=== PATIENT | female | born 1940 | race Caucasian/White ===

== ENCOUNTER 2022-10-31 23:39 | Emergency (ER) | payer MEDICARE, OTHER ==
[~2022-10-31] VITALS: Ht 167.6 cm; Wt 62.5 kg
[2022-11-01] MEDS ORDERED: PIPERACILLIN-TAZOB 3.375GM 100 ML IV ONE
[2022-11-01] MEDS ORDERED: cefTRIAXone 1GM/50ML D5W 50 ML IV ONE (00:15)
[2022-11-01 00:24] LABS: Hematocrit 47.1 % (36.0-46.0); Hemoglobin 15.3 g/dL (12.2-16.2); Mean Corpuscular Hemoglobin 28.8 pg (28.0-32.0); Mean Corpuscular Hgb Conc. 32.5 g/dL (32.0-36.0); Mean Corpuscular Volume 88.4 fL (80.0-100.0); Red Blood Cells 5.32 10^6/uL (4.0-5.20); Red Cell Distribution Width 15.1 % (11.8-14.3); White Blood Cell 26.4 10^3/uL (4.4-10.8)
[2022-11-01 00:28] LABS: Band Neutrophils % (manual) 0; Basophils % (manual) 0 (0.0-2.0); Eosinophils % (manual) 0 (0-7)
[2022-11-01 00:29] LABS: Blast Cells 0; Metamyelocytes % 0; Myelocytes % 0; Promyelocytes % 0; Reactive Lymphocytes 0
[2022-11-01 00:45] LABS: Albumin 3.5 g/dL (3.4-5.0); BUN/Creatinine Ratio 24.4; Magnesium 2.1 mg/dL (1.6-2.6)
[2022-11-01 00:47] LABS: Lymphocytes % (manual) 2 (10.0-50.0); Monocytes % (manual) 3 (0-12)
[2022-11-01 00:53] LABS: CRP High Sensitivity 2.75 mg/dL (< 0.3); Total Protein 7.5 g/dL (6.4-8.2)
[2022-11-01] MEDS ORDERED: VANCOMYCIN PER PHARMACY 0 MG IV SCH ×2 (01:00)
[2022-11-01] MEDS ORDERED: VANCOMYCIN 1GM/250ML 250 ML IV ONE ×2 (01:15→10:45)
[2022-11-01] MEDS ORDERED: IOHEXOL 350 MG/ML 100ML IJ ONE (01:42)
[2022-11-01] MEDS ORDERED: HYDROcodone-ACET 5/325MG TAB PO ONE (09:00)
[2022-11-01] MEDS ORDERED: CLINDAMYCIN 600MG IV 50 ML IV ONE (10:45)
[2022-11-01 17:00] VITALS: BP 149/75
[2022-11-01] MEDS ORDERED: VANCOMYCIN 1GM/250ML 250 ML IV SCH (20:00)
== END 2022-11-01 17:36 | disposition short-term general hospital (02) ==
LOC: ER 23:39
DX: L03.211 Cellulitis of face (principal); Z88.1 Allergy status to other antibiotic agents; Z88.2 Allergy status to sulfonamides; Z90.710 Acquired absence of both cervix and uterus; Z20.822 Contact with and (suspected) exposure to COVID-19; Z79.899 Other long term (current) drug therapy
CPT/HCPCS: 36415; 70488; 80053; 82962; 83605; 83735; 85007; 85027; 86141; 87040; 87426; 96365; 96366; 96367; 99285; J0696; J3370; J3490; Q9967

== ENCOUNTER 2023-08-19 06:01 | Emergency (ER) | payer OTHER ==
[~2023-08-19] VITALS: Ht 167.6 cm; Wt 62.1 kg
[2023-08-19] MEDS ORDERED: KETOROLAC TROMETH 30 MG/ML 1ML VIAL IV ONE (06:45)
[2023-08-19] MEDS ORDERED: ONDANSETRON HCL 4 MG/2 ML VIAL IV ONE (06:45)
[2023-08-19 07:14] LABS: Basophils # (auto) 0 10 ^3/uL (0-0.2); Basophils % (auto) 0.4 % (0.0-2.0); Eosinophils # (auto) 0 10 ^3/uL (0-0.8); Eosinophils % (auto) 0.1 % (0.0-7.0); Hematocrit 42.5 % (36.0-46.0); Hemoglobin 14.1 g/dL (12.2-16.2); Lymphocytes # (auto) 1.3 10 ^3/uL (0.4-5.4); Lymphocytes % (auto) 10.4 % (10.0-50.0); Mean Corpuscular Hgb Conc. 33.1 g/dL (32.0-36.0); Mean Corpuscular Volume 90.5 fL (80.0-100.0); Monocytes # (auto) 0.8 10 ^3/uL (0-1.3); Monocytes % (auto) 6.2 % (0.0-12.0); Neutrophils # (auto) 10.1 10 ^3/uL (1.6-8.6); Neutrophils % (auto) 82.9 % (37.0-80.0); Nucleated Red Blood Cells % 0.1 %; Red Cell Distribution Width 15.1 % (11.8-14.3); White Blood Cell 12.2 10^3/uL (4.4-10.8)
[2023-08-19 08:00] LABS: Alanine Aminotransferase < 9 U/L (7-40); Albumin 3.7 g/dL (3.2-4.8); Alkaline Phosphatase 66 U/L (46-116); Anion Gap 5 (5-15); Aspartate Aminotransferase 11 U/L (13-40); BUN/Creatinine Ratio 22.5 (10.0-20.0); Bilirubin, Total 0.6 mg/dL (0.2-1.0); Blood Urea Nitrogen 20 mg/dL (9-23); Calcium 8.5 mg/dL (8.7-10.4); Carbon Dioxide 25 mmol/L (20-30); Chloride 109 mmol/L (98-107); Glucose 181 mg/dL (74-106); Lipase 49 U/L (12-53); Magnesium 1.9 mg/dL (1.6-2.6); Sodium 139 mmol/L (136-145)
[2023-08-19] MEDS ORDERED: cefTRIAXone 1GM/50ML D5W 50 ML IV ONE (10:15)
[2023-08-19 10:46] LABS: Urine Bacteria FEW /hpf (None Seen); Urine Blood 3+ /uL (Negative); Urine Budding Yeast FEW /hpf (None Seen); Urine Clarity HAZY (Clear); Urine Color PINK (Yellow); Urine Mucus FEW (None Seen); Urine Protein, UAD 1+ (Negative); Urine Specific Gravity 1.026 (1.001-1.035); Urine Urobilinogen Normal (Negative); Urine WBC 19 /hpf (0 - 5); Urine pH 5.5 (5.0-8.0)
[2023-08-19] MEDS ORDERED: CEPH250C PO ×3 (11:08→15:15)
[2023-08-19] MEDS ORDERED: SODIUM CHLORIDE 0.9% 1,000 ML IV ONE ×2 (11:15)
[2023-08-19 12:54] VITALS: BP 127/34; PULSE 80; RESP 14; O2SAT 97
[2023-08-19] MEDS ORDERED: IBUPROFEN 600 MG TAB PO ONE (14:45)
== END 2023-08-19 15:54 | disposition home or self-care (01) ==
LOC: ER 06:01
DX: N20.0 Calculus of kidney (principal); N13.30 Unspecified hydronephrosis; N39.0 Urinary tract infection, site not specified; Z90.49 Acquired absence of other specified parts of digestive tract; Z90.710 Acquired absence of both cervix and uterus; Z79.899 Other long term (current) drug therapy; Z88.1 Allergy status to other antibiotic agents; Z88.2 Allergy status to sulfonamides
CPT/HCPCS: 36415; 74176; 80053; 81001; 83690; 83735; 85025; 87086; 96361; 96365; 96375; 99285; J0696; J1885; J2405

== ENCOUNTER 2024-09-06 09:37 | Emergency (ER) | payer OTHER ==
[~2024-09-06] VITALS: Ht 167.6 cm; Wt 60.5 kg
[~2024-09-06 09:37] MED LIST: CEPH250C PO
--- NOTE | 2024-09-06 10:50 | ED.PDOC ---
Joseline. trauma (HPI) HPI Comments A 84 YEAR OLD FEMALE PRESENTS TO THE ED WITH COMPLAINT OF LEFT FOREARM PAIN AND SKIN TEAR S/P FALL. PATIENT STATES SHE ACCIDENTALLY SLIPPED AND FELL IN THE KITCHEN EARLIER TODAY AND HIT HER LEFT FOREARM ON A CABINET DOOR. PATIENT REPORTS SHE SUSTAINED A SKIN TEAR ON HER LEFT FOREARM AND NOTES SHE HAS LEFT FOREARM PAIN. BLEEDING IS CONTROLLED AT THIS TIME. PATIENT DENIES FEVER, CHILLS, SHORTNESS OF BREATH, CHEST PAIN, ABDOMINAL PAIN, NAUSEA, VOMITING, HEADACHE, OR OTHER COMPLAINTS. NO OTHER SYMPTOMS OR MODIFYING FACTORS AT THIS TIME. PATIENT IS ALERT, ORIENTED X 4, AND HAS STEADY GAIT. Chief Complaint: Laceration Time Seen by MD: 09:57 Primary Care Provider: DR BENTLEY Reviewed notes: Nurses Notes, Medications, Allergies Allergies: Coded Allergies: Amoxicillin (Verified Allergy, Unknown, 11/01/22) Sulfamethoxazole w/Trimethoprim (Verified Allergy, Unknown, 11/01/22) Home Meds Active Scripts Cephalexin (KEFLEX CAPSULE) 250 Mg Cp, 250 MG PO TID for 7 Days, #21 BOTTLE Prov:ISAIAH SANCHEZ MD 08/19/23 Information Source: Patient Mode of Arrival: Ambulatory Severity: Moderate Timing: Hours Duration: Since onset, Hours Prehospital treatment: None Location: (L) Forearm Location of laceration: None Mechanism: Fall Associated signs and symtoms: None Past Medical History PAST MEDICAL HISTORY: Arthritis Surgical History: Appendectomy, Hysterectomy TREE KILLER History: No Pertinent TREE KILLER History Family History Family History: Reviewed,noncontributory to illness Social History Smoker: Non-Smoker Alcohol: Denies ETOH Use Drugs: Denies Drug Use Lives In: Home Constitutional: denies: chills, diaphoresis, fatigue, fever, malaise, sweats, weakness, others EENTM: denies: blurred vision, double vision, ear bleeding, ear discharge, ear drainage, ear pain, ear ringing, eye pain, eye redness, hearing loss, mouth pain, mouth swelling, nasal discharge, nose bleeding, nose congestion, nose pain, photophobia, tearing, throat pain, throat swelling, voice changes, others Respiratory: denies: cough, hemoptysis, orthopnea, SOB at rest, shortness of breath, SOB with excertion, stridor, wheezing, others Cardiovascular: denies: chest pain, dizzy spells, diaphoresis, Dyspnea on exertion, edema, irregular heart beat, left arm pain, lightheadedness, palpitations, PND, syncope, others Gastrointestinal: denies: abdomen distended, abdominal pain, blood streaked bowels, constipated, diarrhea, dysphagia, difficulty swallowing, hematemesis, melena, nausea, poor appetite, poor fluid intake, rectal bleeding, rectal pain, vomiting, others Genitourinary: denies: abnormal vagina bleeding, burning, dyspareunia, dysuria, flank pain, frequency, hematuria, incontinence, pain, , vagina discharge, urgency, others Neurological: denies: dizziness, fainting, headache, left sided numbness, left sided weakness, numbness, paresthesia, pre-existing deficit, right sided numbness, right sided weakness, seizure, speech problems, tingling, tremors, weakness, others Musculoskeletal: reports: others (LEFT FOREARM PAIN); denies: back pain, gout, joint pain, joint swelling, muscle pain, muscle stiffness, neck pain Integumetry: reports: wounds (SKIN TEAR ON LEFT FOREARM ), others (SKIN TEAR LEFT FOREARM); denies: bruises, change in color, change in hair/nails, dryness, laceration, lesions, lumps, rash Allergic/Immunocompromised: denies: Difficulty Healing, Frequent Infections, Hives, Itching, others Hematologic/Lymphatic: denies: anemia, blood clots, easy bleeding, easy bruising, swollen glands, others Endocrine: denies: excessive hunger, excessive sweating, excessive thirst, excessive urination, flushing, intolerance to cold, intolerance to heat, unexplained weight gain, unexplained weight loss, others Psychiatric: denies: anxiety, bipolar disorder, depression, hopeless, panic disorder, schizophrenia, sleepless, suicidal, others All Other Systems: Reviewed and Negative Physical Exam General Appearance: No Apparent Distress, Normal HEENT: Normal ENT Inspection, PERRL/EOMI, Pharynx Normal, TMs Normal Neck: Full Range of Motion, Non-Tender, Normal, Normal Inspection Respiratory: Chest Non-Tender, Lungs Clear, No Accessory Muscle Use, No Respiratory Distress, Normal Breath Sounds Cardiovascular: No Edema, No JVD, No Murmur, No Gallop, Normal Peripheral Pulses, Regular Rate/Rhythm Breast Exam: Deferred Gastrointestinal: No Organomegaly, Non Tender, No Pulsatile Mass, Normal Bowel Sounds, Soft Genitalia: Deferred Pelvic: Deferred Rectal: Deferred Extremities: No calf tenderness, Normal capillary refill, Normal range of motion, No pedal edema, Tender Musculoskeletal : Apperance: Normal Neurologic: Alert, anodizing line operator II-XII nml as Tested, No Motor Deficits, Normal Affect, Normal Mood, No Sensory Deficits Cerebellar Function: Normal Reflexes: Normal Skin: Dry, Normal Color, Warm, Wounds (SKIN TEAR WOUND ON LEFT FOREARM, NO BLEEDING AND FB, NORMAL ROM. ) Peripheral Pulses: 2+ carotid (R), 2+ carotid (L), 2+ Radial (R), 2+ Radial (L) Lymphatic: No Adenopathy Was a procedure done? Was a procedure done?: No Differential Diagnosis Multiple Trauma: Fractures, Abrasions, Contusion, Laceration, Other (SKIN TEAR) Neck Injury: N/A X-Ray, Labs, Meds, VS Vital Signs Date Time Temp Pulse Resp B/P (MAP) Pulse Ox O2 Delivery O2 Flow Rate FiO2 09/06/24 09:47 99.1 110 18 144/69 (94) 97 PROCEDURE: Left forearm radiographs. INDICATION: FALL TECHNIQUE: 2 views of the left forearm were obtained. COMPARISON: None FINDINGS: There is no evidence of fracture or dislocation. Joint spaces are maintained. The soft tissues are unremarkable. IMPRESSION: 1. No fracture or dislocation. ATED BY: EMMY GUILLEN MD DICTATED DATE/TIME: 09/06/241113 SIGNED BY: EMMY GUILLEN MD SIGNED DATE/TIME: 09/06/241113 CC: X-Ray, Labs, Meds, VS Comment EXTERNAL NOTES: NONE LABS ORDERED: NONE REVIEWED AND INTERPRETED RESULTS: NONE IMAGING ORDERED: XR FOREARM LT INDEPENDENT HISTORIANS: PATIENT'S /SPOUSE TREATMENT: PATIENT'S SKIN TEAR ON HER LEFT FOREARM WAS CLEANED USING NORMAL SALINE AND THEN STERI-STRIPS WERE APPLIED. PATIENT'S CASE AND RESULTS HAVE BEEN DISCUSSED WITH THE ED ATTENDING PHYSICIAN AND THEY AGREE WITH MY PLAN OF CARE. I HAVE DISCUSSED IMAGING AND LAB RESULTS WITH PATIENT AND HAVE INSTRUCTED THEM TO FOLLOW UP WITH THEIR PCP IN 1-2 DAYS. THE PATIENT FULLY UNDERSTANDS THEIR RESULTS AND ARE AWARE THEY NEED TO FOLLOW UP WITH THEIR PCP FOR FURTHER EVALUATION IF THEIR SYMPTOMS PERSIST. Images Reviewed?: Images reviewed and evaluated by me Time of 1ST Reevaluation: 11:46 Reevaluation 1ST: Improved Patient Education/Counseling: Diagnosis, Treatment, Need For Follow Up Family Education/Counseling: Diagnosis, Treatment, Need For Follow Up Medical Screening: No EMC Exist At This Time Departure 1 Departure Time of Disposition: 11:46 Impression: Primary Impression: Contusion of left forearm Qualified Codes: S50.12XA - Contusion of left forearm, initial encounter Additional Impression: Skin tear of left forearm without complication Qualified Codes: S51.812A - Laceration without foreign body of left forearm, initial encounter Disposition: HOME / SELF CARE / HOMELESS Condition: Stable Additional Instructions: FOLLOW-UP WITH PCP IN 1 TO 2 DAYS. TAKE MEDICATIONS PRESCRIBED. RETURN TO ED FOR ANY NEW OR WORSENING SYMPTOMS. Discharged With: Self Critical Care Note Critical Care Time?: No Stability Stability form required: No I personally scribed for GISELLE MAGANA ([email or web address]) on 09/06/24 at 10:50. Electronically submitted by Jayden Briceno ([employer]). I personally scribed for GISELLE MAGANA ([email or web address]) on 09/06/24 at 11:19. Electronically submitted by Jayden Briceno ([employer]). I personally scribed for GISELLE MAGANA ([email or web address]) on 09/06/24 at 11:20. Electronically submitted by Jayden Briceno ([employer]). I personally scribed for GISELLE MAGANA ([email or web address]) on 09/06/24 at 11:20. Electronically submitted by Jayden Briceno ([employer]). GISELLE MAGANA Sep 06, 2024 10:50
--- NOTE | 2024-09-06 11:17 | DVH ---
PROCEDURE: Left forearm radiographs. INDICATION: FALL TECHNIQUE: 2 views of the left forearm were obtained. COMPARISON: None FINDINGS: There is no evidence of fracture or dislocation. Joint spaces are maintained. The soft tis sues are unremarkable. IMPRESSION: 1. No fracture or dislocation.
[2024-09-06] MEDS ORDERED: CEPH500C PO (11:31)
[2024-09-06 11:41] VITALS: BP 142/72; PULSE 100; RESP 16; TEMP 99; O2SAT 97
== END 2024-09-06 11:44 | disposition home or self-care (01) ==
LOC: ER 09:37
DX: S50.12XA Contusion of left forearm, initial encounter (principal); M19.90 Unspecified osteoarthritis, unspecified site; Z88.0 Allergy status to penicillin; Z88.2 Allergy status to sulfonamides; Z90.49 Acquired absence of other specified parts of digestive tract; Z90.710 Acquired absence of both cervix and uterus; Z98.890 Other specified postprocedural states; W01.190A Fall on same level from slipping, tripping and stumbling with subsequent striking against furniture, initial encounter; Y93.89 Activity, other specified; Y92.89 Other specified places as the place of occurrence of the external cause; Y99.8 Other external cause status
CPT/HCPCS: 73090